=== PATIENT | male | born 1960 | race Caucasian/White ===

== ENCOUNTER 2022-11-15 13:47 | Outpatient (RCR) | payer OTHER, SELFPAY | END 2023-02-14 16:00 | disposition home or self-care (01) | LOC: HO.WCC 13:47 | PROVIDERS: PCP Internal Medicine Cardiovascular Disease; Referring Provider Podiatrist; Visit Provider Physician Assistant | DX: Z09 Encounter for follow-up examination after completed treatment for conditions other than malignant neoplasm (principal); L84 Corns and callosities; Z79.84 Long term (current) use of oral hypoglycemic drugs; Z79.4 Long term (current) use of insulin; Z79.899 Other long term (current) drug therapy; Z86.31 Personal history of diabetic foot ulcer | CPT/HCPCS: 11042; 11043; 99212; 99213 ==